=== PATIENT | male | born 1950 | race Caucasian/White ===

== ENCOUNTER 2023-08-10 17:31 | Inpatient (IN) | payer MEDICARE, SELFPAY ==
[2023-08-10] VITALS (18 sets, daily range): BP systolic 113–183; BP diastolic 64–91; PULSE 71–84; RESP 18; TEMP 36.4; O2SAT 95–100; BMI 27.6
--- NOTE | 2023-08-10 17:35 | ED.NURSE ---
Data Power Consultant assisted patient out of private vehicle into wheelchair. He is able to move his right arm/leg, communications writer had to lift patient's left leg out of the vehicle, and boost him under his left arm to get him pivoted into the wheelchair. Smile noted to be uneven on the left side. Patient reports symptoms started Ephraim Denise. He reports being on a blood thinner. Radiology notified of need for stat head ct - there is another patient for a PE protocol heading to the scanner. Discussed patient with Dr. Antonio, she okays the PE study to be completed first as patient's symptoms started 3 days ago. Patient on gambling monitor, oximeter. 20G IV SL to R AC. EKG being obtained.
--- NOTE | 2023-08-10 17:47 | CRLHL7_ITS ---
For Patients: As a result of the Century Cures Act, medical imaging exams and procedure reports are released immediately into your electronic medical record. You may view this report before your referring provider. If you have questions, please contact your health care provider. INDICATION: Left-sided weakness TECHNIQUE: Noncontrast axial CT of the head. Coronal and sagittal reformats. Bone and soft tissue algorithms. COMPARISON: No relevant comparison studies available at this institution. FINDINGS: Focal region of heterogeneous hypoattenuation at the right parieto-occipital junction, obscuring the sanchez-white matter differentiation, with additional hypoattenuating areas throughout the right frontal and parietal lobes, suspicious for evolving infarcts. No evidence of significant hemorrhagic conversion, midline shift, hydrocephalus or herniation. Midline structures are unremarkable. Calcific indicating atherosclerotic plaquing. Grossly intact calvarium. Clear visualized paranasal sinuses and mastoid air cells. IMPRESSION: 1. Findings suspicious for multiple evolving subacute right cerebral infarcts. MRI brain may better characterize. 2. No evidence of significant hemorrhagic conversion, midline shift, hydrocephalus or herniation. Please note that all CT scans at this facility use dose modulation, iterative reconstruction, and/or weight-based dosing when appropriate to reduce radiation dose to as low as reasonably achievable. Dictated by Brittany Walton MD @ 08/10/2023 6:41:36 PM (Electronically Signed)
--- NOTE | 2023-08-10 17:55 | ED_ITS ---
HPI - General Adult General Time Seen by Provider: 17:55 Date Seen: 08/10/23 Chief complaint: Neuro Symptoms/Altered Deficit Stated complaint: Possible stroke Time Seen by Provider: 08/10/23 17:55 Source: patient Mode of arrival: ambulatory Limitations: no limitations History of Present Illness HPI narrative: Phil is a very pleasant 73-year-old gentleman with a history of tobacco use, hypertension, diabetes and hyperlipidemia who comes to the emergency room for evaluation of left sided weakness. Patient notes that he has been dealing with some dizziness and vertigo for quite some time. A few days ago he noticed that his left hand was not working as well as normal. He states it was hard for him to pick things up. He has also had difficulty with walking but it is states that is been coming on for quite some time. She notes that he walks and a shuffling type gait. He states that is because he is dizzy and he is afraid of falling. He states that yesterday morning he got up from bed and hit his head on the dresser. This is left a scab. He denies any nausea vomiting or recent illness. He notes he smokes a half a pack of cigarette daily he has not had any loss of bowel or bladder control. He denies numbness or tingling. He does not think he has had any visual changes. Related Data Home Medications Medication Instructions Recorded Confirmed aspirin 81 mg capsule 81 mg PO DAILY 08/10/23 08/10/23 atorvastatin 40 mg tablet 40 mg PO DAILY 08/10/23 08/10/23 glipizide 2.5 mg tablet, extended 2.5 mg PO DAILY 08/10/23 08/10/23 release 24 hr lisinopril 10 mg tablet 10 mg PO DAILY 08/10/23 08/10/23 metformin 1,000 mg tablet 1,000 mg PO BID 08/10/23 08/10/23 Allergies Allergy/AdvReac Type Severity Reaction Status Date / Time No Known Drug Allergies Allergy Verified 08/10/23 21:16 Review of Systems Status of ROS: Reports: 10 or more systems reviewed and unremarkable except as noted in History and below Const: Denies: fever, chills or fatigue Eyes: Denies: change in vision or blurry vision ENMT: Reports: vertigo; Denies: neck pain or throat swelling Cardio: Reports: lightheadedness; Denies: chest pain, palpitations, swelling of feet/ankles or shortness of breath with exertion Resp: Denies: shortness of breath, cough or wheezing GI: Denies: abdominal pain, nausea or vomiting : Denies: painful urination or urinary frequency Musculo: Denies: back pain or neck pain Integ/Breast: Denies: rash Neuro: Reports: weakness in extremities, lack of coordination, dizziness and vertigo; Denies: headache or numbness in extremities Endo: Denies: fatigue Allergy/Immuno: Denies: throat swelling or wheezing PFSH PFSH Social History Smoking Status: Never smoker Do you use any of these nicotine containing products: None Second hand tobacco smoke exposure: No How often do you have a drink containing alcohol: never AUDIT-C Alcohol total score: 0 Non-prescribed substance use: denies use service: No Exam Narrative: Exam Narrative: Phil is alert and oriented. He is very funny making his family members were present lap. His EOM is full. No nystagmus. He has deficit of left-sided peripheral vision on exam. Questionable some left-sided neglect as well. Head shows a scab in his forehead with no underlying step-offs. Neck is supple with no midline tenderness. Face is symmetrical with eyebrow raise he is smiling symmetrically. Tongue is midline. Heart with regular rate and rhythm while he has been here. Upper extremity strength is very is subtle decreased on the left. However finger to nose and movement is challenging for him. Eye lungs are clear. Abdomen soft nontender. Left lower extremity wound able to lift leg off bed but falls back to bed. Cannot direct is boot to hit my hand. Right leg within normal limits. Romberg challenging as he is having a hard time holding his arm with palm up. Const: Vital Signs, click to edit/add: Vital Signs - 24 hr 08/10/23 17:51 08/10/23 19:33 08/10/23 19:34 Temperature 97.5 F L Pulse Rate 83 82 Pulse Rate [Pulse Oximeter] 79 Respiratory Rate 18 Blood Pressure 156/81 H Blood Pressure [Ri ght Upper Arm] 113/64 Pulse Oximetry 97 98 96 Oxygen Delivery Me thod Room Air 08/10/23 19:45 08/10/23 19:47 08/10/23 20:00 Temperature Pulse Rate 82 83 84 Pulse Rate [Pulse Oximeter] Respiratory Rate Blood Pressure 146/91 H Blood Pressure [Ri ght Upper Arm] Pulse Oximetry 98 99 100 Oxygen Delivery Me thod 08/10/23 20:02 08/10/23 20:03 08/10/23 20:15 Temperature Pulse Rate 82 83 81 Pulse Rate [Pulse Oximeter] Respiratory Rate Blood Pressure 168/87 H Blood Pressure [Ri ght Upper Arm] Pulse Oximetry 97 97 96 Oxygen Delivery Me thod 08/10/23 20:16 08/10/23 20:30 08/10/23 20:32 Temperature Pulse Rate 80 79 80 Pulse Rate [Pulse Oximeter] Respiratory Rate Blood Pressure 140/85 H 142/79 H Blood Pressure [Ri ght Upper Arm] Pulse Oximetry 97 98 98 Oxygen Delivery Me thod 08/10/23 20:46 08/10/23 21:12 08/10/23 21:16 Temperature Pulse Rate 79 78 Pulse Rate [Pulse Oximeter] Respiratory Rate Blood Pressure 168/87 H 183/83 H Blood Pressure [Ri ght Upper Arm] Pulse Oximetry 95 98 98 Oxygen Delivery Me thod 08/10/23 21:31 08/10/23 21:46 08/10/23 22:01 Temperature Pulse Rate 77 71 73 Pulse Rate [Pulse Oximeter] Respiratory Rate Blood Pressure 169/90 H 149/82 H 139/78 Blood Pressure [Ri ght Upper Arm] Pulse Oximetry 98 96 98 Oxygen Delivery Me thod Documenting provider has reviewed patient's vital signs: yes Course Course ED Course: Differential diagnosis and Q includes subacute stroke, tumor, other neurological illness. Will obtain head CT. Laboratory values to include CBC, comprehensive, CRP, urinalysis. Reevaluation(s) Reevaluation #1: Patient continues to be stable. A CT of the head shows multiple right-sided cerebral infarcts. No evidence of bleeding. He is given aspirin 325 mg p.o. here in the ER. I do speak to Neurology who requests CTA of head and neck. Patient noted to have elevated glucose of 450 and thus 12 units of regular insulin is given. Reevaluation #2: CTA of the head was done but not of the neck. I spoke with Neurology and in light of patient's elevated creatinine of 1.9 I hesitate to re-scanned him. Instead Dr. Rizvi, [facility] has stated that we can do an MRA of head and neck tomorrow. Vital Signs Vital signs: Initial Vital Signs Temperature 97.5 F L 08/10/23 17:51 Temperature Source Temporal Artery Scan 08/10/23 17:51 Pulse Rate 79 08/10/23 17:51 Respiratory Rate 18 08/10/23 17:51 Blood Pressure 113/64 08/10/23 17:51 Blood Pressure Mean 80 08/10/23 17:51 Blood Pressure Position Sitting 08/10/23 17:51 Pulse Oximetry 97 08/10/23 17:51 Oxygen Delivery Method Room Air 08/10/23 17:51 Vital Signs Temperature 97.5 F L 08/10/23 17:51 Pulse Rate 79 08/10/23 17:51 Respiratory Rate 18 08/10/23 17:51 Blood Pressure 113/64 08/10/23 17:51 Pulse Oximetry 97 08/10/23 17:51 Oxygen Delivery Method Room Air 08/10/23 17:51 Temperature 97.5 F L 08/10/23 17:51 Pulse Rate 73 08/10/23 22:01 Respiratory Rate 18 08/10/23 17:51 Blood Pressure 139/78 08/10/23 22:01 Pulse Oximetry 98 08/10/23 22:01 Oxygen Delivery Method Room Air 08/10/23 17:51 Medications Administered Medications: Discontinued Medications Generic Name Dose Route Start Last Admin Trade Name Freq PRN Reason Stop Dose Admin Aspirin 324 mg 08/10/23 19:43 08/10/23 19:51 Aspirin 81 Mg Tab.Chew PO 08/10/23 19:44 324 mg ONCE ONE Administration Insulin Human Regular 12 unit 08/10/23 19:49 08/10/23 19:57 Insulin Regular 100 Unit/Ml Inj SUBCUT 08/10/23 19:50 12 unit ONCE ONE Administration Medical Decision Making MDM Narrative Medical decision making narrative: 1. Subacute CVA-multiple subacute strokes on right hemisphere noted on CT. Neurology suggest MRI/MRA of head and neck tomorrow along with stroke workup. I did speak with Neurology who did read patient's CT of the head with no findings that would indicate vascular intervention tonight. CTA of the neck was thought to be a been ordered by myself but Radiology has no order in their system. At this time I do speak to the neurologist in regards to this occurrence. At this time there are no beds for transfer, patient has creatinine that is slightly elevated at 1.9, and it is highly unlikely that given patient's symptoms over the past days that there would be an emergent vascular intervention tonight. Therefore will avoid a repeat exposure to contrast at this time. Plan on MRA/MR I tomorrow. During patient's stay here he has been in sinus rhythm and EKG is within normal limits. No personal reports of palpitations or rapid heart rate per patient. His risk factors include tobacco use, hyperlipidemia, hypertensio n. Patient received aspirin 325 mg this evening. At this time per Radiology no addition of Plavix. 2. Hyper glycemia-history of type 2 diabetes. Blood sugar 450 and thus patient was given regular insulin 12 units subcu. 3. Hypertension. Initial blood pressure 113/64 now 168/87. 4. Elevated creatinine-I believe this to be pre renal as BUN is elevated at 40. 1 L of normal saline is given this evening. 5. Disposition-admit to [facility] at this time. Phone neurological consult done tonight. Will have secondary neurological consult tomorrow after MRI/MRA. Medical Records Medical records reviewed: Yes I reviewed the patient's medical records Lab Data Lab results reviewed: Yes I reviewed the patient's lab results Labs: Lab Results 08/10/23 08/10/23 Range/Units 17:45 20:45 WBC 7.14 (4.50-11.00) K/uL RBC 3.78 L (4.30-5.90) m/uL Hgb 12.6 L (13.5-17.5) gm/dL Hct 38.8 (37.0-53.0) % MCV 103 H (80-100) fL MCH 33 (26-34) pg MCHC 33 (32-36) gm/dL RDW Coeff of Nelson 12.3 (11.5-15.5) % Plt Count 258 (140-440) K/uL Neut % (Auto) 81.1 H (42.0-72.0) % Lymph % (Auto) 10.9 L (20-44) % [place] % (Auto) 6.4 (0.0-11.0) % Eos % (Auto) 0.7 (0.0-7.0) % Baso % (Auto) 0.6 (0.0-3.0) % Neut # (Auto) 5.80 (1.7-7.0) K/uL Lymph # (Auto) 0.80 L (0.90-2.90) K/uL [place] # (Auto) 0.50 (0.00-0.90) K/UL Eos # (Auto) 0.05 (0.00-0.50) K/uL Baso # (Auto) 0.04 (0.00-0.30) K/uL Abs Immat Gran (auto) 0.02 (0.00-0.30) K/uL Imm/Tot Granulo (auto) 0.3 % Sodium 134 L (135-149) mmol/L Potassium 4.5 (3.6-5.1) mmol/L Chloride 99 (96-114) mmol/L Carbon Dioxide 23 (20-32) mmol/L Anion Gap 12 (7-15) mEq/L BUN 40 H (7-30) mg/dL Creatinine 1.9 H (0.5-1.5) mg/dL Estimated Creat Clear 35.66 Estimated GFR 37 ml/min Glucose 450 H* (60-115) mg/dL Calcium 9.0 (8.4-10.6) mg/dL Total Bilirubin 0.8 (0.1-1.5) mg/dL AST 29 (12-35) U/L ALT 25 (4-50) U/L Alkaline Phosphatase 67 (40-150) U/L C-Reactive Protein < 0.5 L (0.5-1.0) mg/dL Total Protein 7.5 (6.0-8.3) g/dL Albumin 4.7 (3.3-5.0) g/dL POC Glucose 362 H* (60-115) mg/dl Imaging Data CT scan - head: Attestation: I have reviewed the pertinent imaging results. My impression: By my read most obvious is a right occipital lobe CVA. Radiologist's impression: Focal region of heterogeneous hypoattenuation at the right parieto-occipital junction, obscuring the sanchez-white matter differentiation, with additional hypoattenuating areas throughout the right frontal and parietal lobes, suspicious for evolving infarcts. No evidence of significant hemorrhagic conversion, midline shift, hydrocephalus or herniation. Midline structures are unremarkable. Calcific indicating atherosclerotic plaquing. Grossly intact calvarium. Clear visualized paranasal sinuses and mastoid air cells. IMPRESSION: 1. Findings suspicious for multiple evolving subacute right cerebral infarcts. MRI brain may better characterize. 2. No evidence of significant hemorrhagic conversion, midline shift, hydrocephalus or herniation. CTA: Attestation: I have reviewed the pertinent imaging results. Radiologist's impression: Diminished caliber and diminished opacification of the right internal carotid artery, suggesting a severe stenosis more proximally in the neck. Patent right anterior and middle cerebral arteries, and patent left anterior circulation. Patent right posterior communicating artery, which supplies the right posterior cerebral artery. Patent intracranial vertebral arteries, basilar artery, and left posterior cerebral artery. No intracranial aneurysm identified. ECG Data Attestation: I personally reviewed and interpreted this ECG as follows: Interpretation: By my read EKG shows sinus rhythm at a rate of 76. No ST or T-wave changes. QT and FL intervals within normal limits. Discharge Plan Discharge Clinical Impression: Acute CVA (cerebrovascular accident) Condition: Unchanged
[2023-08-10 19:10] LABS: Basophils Absolute Auto 0.04 K/uL (0.00-0.30); Basophils Percent Auto 0.6 % (0.0-3.0); Eosinophils Absolute Auto 0.05 K/uL (0.00-0.50); Eosinophils Percent Auto 0.7 % (0.0-7.0); Hematocrit 38.8 % (37.0-53.0); Hemoglobin* 12.6 gm/dL (13.5-17.5); Immature Granulocytes Abs Auto 0.02 K/uL (0.00-0.30); Immature Granulocytes Pct Auto 0.3 %; Lymphocytes Percent Auto 10.9 % (20-44); Mean Corpuscular HGB Conc 33 gm/dL (32-36); Mean Corpuscular Hemoglobin 33 pg (26-34); Mean Corpuscular Volume 103 fL (80-100); Monocytes Percent Auto 6.4 % (0.0-11.0); Neutrophils Percent Auto 81.1 % (42.0-72.0); Platelet Count* 258 K/uL (140-440); RDW Coefficient of Variation % 12.3 % (11.5-15.5); Red Blood Count 3.78 m/uL (4.30-5.90); White Blood Count* 7.14 K/uL (4.50-11.00)
[2023-08-10 19:13] LABS: Slide Review Reflex No
[2023-08-10 19:36] LABS: Albumin* 4.7 g/dL (3.3-5.0); Chloride* 99 mmol/L (96-114)
[2023-08-10 19:37] LABS: Potassium* 4.5 mmol/L (3.6-5.1); Sodium* 134 mmol/L (135-149)
[2023-08-10 19:39] LABS: Bilirubin Total* 0.8 mg/dL (0.1-1.5); Creatinine* 1.9 mg/dL (0.5-1.5); Est. Creatinine Clearance* 35.66; Estimated Glomerular Filt Rate 37 ml/min
[2023-08-10 19:40] LABS: Alanine Aminotransferase* 25 U/L (4-50); Alkaline Phosphatase* 67 U/L (40-150); Anion Gap 12 mEq/L (7-15); Aspartate Amino Transferase* 29 U/L (12-35); Blood Urea Nitrogen* 40 mg/dL (7-30); Carbon Dioxide* 23 mmol/L (20-32); Total Protein* 7.5 g/dL (6.0-8.3)
[2023-08-10 19:46] LABS: C Reactive Protein* < 0.5 mg/dL (0.5-1.0); Glucose* 450 mg/dL (60-115)
[2023-08-10] MEDS: ASPIRIN 81 MG TAB.CHEW 324 MG PO (19:51)
--- NOTE | 2023-08-10 20:39 | CRLHL7_ITS ---
For Patients: As a result of the Century Cures Act, medical imaging exams and procedure reports are released immediately into your electronic medical record. You may view this report before your referring provider. If you have questions, please contact your health care provider. INDICATION: Acute stroke, left-sided weakness. TECHNIQUE: CTA head with contrast bolus tracking, 3D angiographic rendering using maximum intensity projection (MIP) and images permanently archived. FINDINGS: Preliminary Report: CTA Head: Diminished caliber and diminished opacification of the right internal carotid artery, suggesting a severe stenosis more proximally in the neck. Patent right anterior and middle cerebral arteries, and patent left anterior circulation. Patent right posterior communicating artery, which supplies the right posterior cerebral artery. Patent intracranial vertebral arteries, basilar artery, and left posterior cerebral artery. No intracranial aneurysm identified. Report called to Dr. Fox at 10:30 p.m. on 08/10/2023. Read by: Irvin Araya MD @ 08/10/2023 22:35:53 IMPRESSION: AGREE WITH ABOVE. There is almost certainly a severe/critical stenosis of the cervical right ICA that is not visualized. Recommend dedicated imaging for further evaluation. Please note that all CT scans at this facility use dose modulation, iterative reconstruction, and/or weight-based dosing when appropriate to reduce radiation dose to as low as reasonably achievable. Dictated by Zaid Marshall MD @ 08/11/2023 9:55:36 AM (Electronically Signed)
[2023-08-10 22:02] LABS: Glucose, Point-of-Care* 362 mg/dl (60-115)
--- NOTE | 2023-08-10 23:07 | P.IMHP_ITS ---
Hospitalist- H&P: HPI History of Present Illness Date Seen: 08/10/23 Chief complaint: Possible stroke Narrative: Phil Burrell is a 73 year old male past medical history significant for hypertension, hyperlipidemia, BPV, diabetes mellitus type 2 is admitted to the medical floor from the ED for further management acute CVA. Patient is seen with and daughter at bedside. Patient and family reports that he 1st noted changes in June. At that time he was having difficulty climbing stairs without holding onto a railing. He also had episode of pain behind the right eye which was evaluated by Ophthalmology without acute findings. He denies recent headaches or dizziness. He does have a history of benign positional vertigo which began approximately 15 years ago. This has been under reasonable control. He denies recent chest pain or shortness of breath. No recent fevers chills or sweats. Denies change in appetite, abdominal pain, nausea vomiting. Denies change in stool or urination. Evolving since June when he 1st noticed difficulty in climbing stairs patient has also had most recently weakness of the left extremities. He reports his legs giving out under him when trying to sit down during 1 episode. His notes that some more in the last few weeks he was cooking dinner with his left arm limp at his side. His response when she brought it up to him was that he was not having a heart attack. He has had evolving left lower extremity weakness as well. He admits he is not able to walk normally but shuffles quickly to keep his balance. Additionally, he needs to hold onto or just touch morales for support. Patient is a smoker. Typically drinks 2-3 beers daily but has not had any alcohol since 08/06/2023. No history of withdrawals or seizures. Review of Systems Narrative: REVIEW OF SYSTEMS: Complete review of systems performed and negative unless otherwise stated in HPI or below. [facility] Medical History Type 2 diabetes mellitus ?E11.9 - Type 2 diabetes mellitus without complications (ICD-10) Hyperlipidemia ?E78.5 - Hyperlipidemia, unspecified (ICD-10) Hypertension ?I10 - Essential (primary) hypertension (ICD-10) Social History Smoking Status: Never smoker Do you use any of these nicotine containing products: None Second hand tobacco smoke exposure: No How often do you have a drink containing alcohol: never AUDIT-C Alcohol total score: 0 Non-prescribed substance use: denies use service: No Meds Home Medications and Allergies Home Medications Medication Instructions Recorded Confirmed Type aspirin 81 mg capsule 81 mg PO DAILY 08/10/23 08/10/23 History atorvastatin 40 mg tablet 40 mg PO DAILY 08/10/23 08/10/23 History glipizide 2.5 mg tablet, extended 2.5 mg PO DAILY 08/10/23 08/10/23 History release 24 hr lisinopril 10 mg tablet 10 mg PO DAILY 08/10/23 08/10/23 History metformin 1,000 mg tablet 1,000 mg PO BID 08/10/23 08/10/23 History Allergies Allergy/AdvReac Type Severity Reaction Status Date / Time No Known Drug Allergies Allergy Verified 08/10/23 21:16 Exam Narrative: Exam Narrative: PHYSICAL EXAM General: Very pleasant, conversant, NAD. Jokes with family and staff. HEENT: Normocephalic, atraumatic, sclera white, EOMI, oral mucosa moist. No facial drooping, slurring. Cardiovascular: RRR, S1S2. No pitting edema Pulmonary: CTA bilaterally without rhonchi, rales, expiratory wheezes. No dyspnea Abdominal: Soft, nondistended, NTTP Neurological: Alert, answering questions appropriately, cranial nerves intact. Notable for left upper and lower extremity weakness, mostly distal, with preserved proximal strength. Coordination of left upper and lower extremity is disrupted as well. Extremities: No gross joint deformity or swelling. AROMI. Neurovascularly intact Skin: Warm, dry. Const: Vital Signs, click to edit/add: Vital Signs - 24 hr 08/10/23 17:51 08/10/23 19:33 08/10/23 19:34 Temperature 97.5 F L Pulse Rate 83 82 Pulse Rate [Pulse Oximeter] 79 Respiratory Rate 18 Blood Pressure 156/81 H Blood Pressure [Ri ght Upper Arm] 113/64 Pulse Oximetry 97 98 96 Oxygen Delivery Me thod Room Air 08/10/23 19:45 08/10/23 19:47 08/10/23 20:00 Temperature Pulse Rate 82 83 84 Pulse Rate [Pulse Oximeter] Respiratory Rate Blood Pressure 146/91 H Blood Pressure [Ri ght Upper Arm] Pulse Oximetry 98 99 100 Oxygen Delivery Me thod 08/10/23 20:02 08/10/23 20:03 08/10/23 20:15 Temperature Pulse Rate 82 83 81 Pulse Rate [Pulse Oximeter] Respiratory Rate Blood Pressure 168/87 H Blood Pressure [Ri ght Upper Arm] Pulse Oximetry 97 97 96 Oxygen Delivery Me thod 08/10/23 20:16 08/10/23 20:30 08/10/23 20:32 Temperature Pulse Rate 80 79 80 Pulse Rate [Pulse Oximeter] Respiratory Rate Blood Pressure 140/85 H 142/79 H Blood Pressure [Ri ght Upper Arm] Pulse Oximetry 97 98 98 Oxygen Delivery Me thod 08/10/23 20:46 08/10/23 21:12 08/10/23 21:16 Temperature Pulse Rate 79 78 Pulse Rate [Pulse Oximeter] Respiratory Rate Blood Pressure 168/87 H 183/83 H Blood Pressure [Ri ght Upper Arm] Pulse Oximetry 95 98 98 Oxygen Delivery Me thod 08/10/23 21:31 08/10/23 21:46 08/10/23 22:01 Temperature Pulse Rate 77 71 73 Pulse Rate [Pulse Oximeter] Respiratory Rate Blood Pressure 169/90 H 149/82 H 139/78 Blood Pressure [Ri ght Upper Arm] Pulse Oximetry 98 96 98 Oxygen Delivery Me thod Hospitalist - H&P: Result Labs Labs: Short CBC 08/10/23 Range/Units 17:45 WBC 7.14 (4.50-11.00) K/uL Hgb 12.6 L (13.5-17.5) gm/dL Hct 38.8 (37.0-53.0) % Plt Count 258 (140-440) K/uL BMP 08/10/23 17:45 Sodium 134 L Potassium 4.5 Chloride 99 Carbon Dioxide 23 BUN 40 H Creatinine 1.9 H Glucose 450 H* Calcium 9.0 Liver Function 08/10/23 Range/Units 17:45 Total Bilirubin 0.8 (0.1-1.5) mg/dL AST 29 (12-35) U/L ALT 25 (4-50) U/L Alkaline Phosphatase 67 (40-150) U/L Albumin 4.7 (3.3-5.0) g/dL ECG Attestation: I personally reviewed and interpreted this ECG as follows: ECG interpretation date: 08/10/23 Interpretation: NSR, ventricular rate 76, QTC [address] scan - head: Attestation: I have reviewed the pertinent imaging results. Radiologist's impression: Noncontrast axial CT of the head. Coronal and sagittal reformats. Bone and soft tissue algorithms. COMPARISON: No relevant comparison studies available at this institution. FINDINGS: Focal region of heterogeneous hypoattenuation at the right parieto-occipital junction, obscuring the sanchez-white matter differentiation, with additional hypoattenuating areas throughout the right frontal and parietal lobes, suspicious for evolving infarcts. No evidence of significant hemorrhagic conversion, midline shift, hydrocephalus or herniation. Midline structures are unremarkable. Calcific indicating atherosclerotic plaquing. Grossly intact calvarium. Clear visualized paranasal sinuses and mastoid air cells. IMPRESSION: 1. Findings suspicious for multiple evolving subacute right cerebral infarcts. MRI brain may better characterize. 2. No evidence of significant hemorrhagic conversion, midline shift, hydrocephalus or herniation. CTA head: Radiologist's impression: Formal read pending on admission Assessment and Plan Assessment and plan (1) Acute CVA (cerebrovascular accident): Problem comment: -CT shows suspicion for multiple evolving infarcts of the right parietal occipital junction, right frontal and parietal lobes -left-sided deficits, more distal findings with retained proximal strength -ED provider discussed with TeleNeurology. No vascular intervention recommended. Admit locally, recommendations as follows: -cardiac monitoring -1 time loading dose aspirin 325 mg in ED. Further aspirin dosing pending results of MRA/MRI tomorrow. No Plavix yet recommended. -allow for permissive hypertension 220/120 - hold lisinopril -NS gentle hydration 75 mL/hr given history of diabetes and contrast given for CT scans -MRI/MRA head and neck tomorrow -TTE ordered -lipid panel and hemoglobin A1c ordered -neurochecks -SCDs. No enoxaparin pending results MRA/MRI -PT/OT consults. CLINICAL IMPLEMENTATION SPECIALIST consult. -follow-up with Neurology tomorrow after completion of tests for further recommendations Status: Acute (2) Hypertension: Problem comment: -hold lisinopril -allow for permissive hypertension 220/120 in setting of CVA Status: Chronic (3) Hyperlipidemia: Problem comment: -continue statin. Query need for high-intensity pending further workup -lipid panel ordered Status: Acute (4) Type 2 diabetes mellitus: Problem comment: -hemoglobin A1c ordered -hold home metformin. Continue glipizide. -diabetic diet (nursing bedside swallow eval 1st), glucose checks ACHS, insulin sliding scale Status: Chronic (5) EDUARDO (acute kidney injury): Problem comment: -creatinine 1.9, most recently 0.91 (07/07), baseline 0.88-1.02 -received contrast for CT scans. Will need further contrast for MRA/MRI tomorrow -hold lisinopril -gentle IV hydration Status: Acute Plan CODE: Full as discussed with patient and family VTE PPX: SCDs Disposition: Observation
[2023-08-11] VITALS (9 sets, daily range): BP systolic 72–180; BP diastolic 61–86; PULSE 54–80; RESP 16–18; TEMP 36.4–36.8; O2SAT 95–99; BMI 24.3
--- NOTE | 2023-08-11 | CRLHL7_ITS ---
For Patients: As a result of the Century Cures Act, medical imaging exams and procedure reports are released immediately into your electronic medical record. You may view this report before your referring provider. If you have questions, please contact your health care provider. Indication: NEURO DEFICIT Technique: [id number] and Gadolinium bolus MR angiogram of the neck with 3D MIP reconstructions provided. All measurements are based on NASCET criteria. Postcontrast images obtained after administration of 20 cc Gadolinium-based IV contrast. Comparison: No prior studies available for comparison at this institution. Findings: High-grade near occlusive stenosis of the right proximal ICA. Possible 6 mm intraluminal thrombus on image 44 series 9. Less than 50 percent stenosis of the left ICA due to atherosclerotic plaque. The cervical segments of both vertebral arteries are patent. origin of the right posterior cerebral artery. The visualized portions of the aortic arch, great vessel origins and proximal subclavian arteries are unremarkable. Impression: 1. High-grade near occlusive stenosis of the right proximal ICA. Possible 6 mm intraluminal thrombus on image 44 series 9. 2. Less than 50 percent stenosis of the left ICA due to atherosclerotic plaque. 3. Patent vertebral arteries bilaterally. Dictated by Bennie Szymanski MD @ 08/11/2023 1:08:20 PM (Electronically Signed)
--- NOTE | 2023-08-11 | CRLHL7_ITS ---
For Patients: As a result of the Century Cures Act, medical imaging exams and procedure reports are released immediately into your electronic medical record. You may view this report before your referring provider. If you have questions, please contact your health care provider. Indication: NEURO DEFICIT Technique: Noncontrast sagittal T1, axial FLAIR, T2 turbo spine echo, SWI, and diffusion weighted images. Supplemental post contrast T1 weighted axial and coronal sequences are provided after administration of 20 mL gadolinium-based IV contrast. Comparison: CT 08/10/2023 Findings: There are multiple scattered foci of diffusion restriction and T2 prolongation in the right frontal lobe, right parietal lobe, right occipital and posterior temporal lobe as well as in the right splenium of the corpus callosum, and right hippocampus consistent with right watershed territory ischemic infarcts. Cortical T1 shortening along the right occipital infarcts likely represents cortical laminar necrosis. Few punctate foci of susceptibility artifact in the right occipital and right parietal infarcts suggestive of petechial hemorrhage. Mild edema associated with the right parietal and occipital lobe infarcts. No significant mass effect. No midline shift. No hydrocephalus. Mild parenchymal volume loss. No suspicious extra-axial collection. Left deviation of the nasal septum. The paranasal sinuses are clear. The orbits are unremarkable. Impression : 1. Multiple acute and subacute ischemic infarcts right frontal lobe, right parietal lobe, right occipital and posterior temporal lobe, right splenium of the corpus callosum, and right hippocampus are most consistent with right watershed territory ischemic infarcts. 2. Cortical T1 shortening along the right occipital infarcts likely represents cortical laminar necrosis. 3. Few punctate foci of susceptibility artifact in the right occipital and right parietal infarcts suggestive of petechial hemorrhage. 4. No significant mass effect. No hydrocephalus. Dictated by Bennie Szymanski MD @ 08/11/2023 12:58:42 PM (Electronically Signed)
[2023-08-11] MEDS: 0.9 % SODIUM CHLORIDE 1000 ml 1,000 ML IV (01:37)
[2023-08-11] MEDS: 0.9 % SODIUM CHLORIDE 1000 ml 1,000 ML 75 ML IV (02:32)
--- NOTE | 2023-08-11 06:59 | PC.NURSE ---
Shift note 23: Pt w/ obvious L sided deficits, able to lift L arm about 2 inches w/ minimal hand grasp, able to lift L leg about 3 inches but unable to resist pressure, L facial droop. Pt impulsive, follows commands poorly, confusion waxes and wans, although unable to carry out full conversation w/ absolute appropriateness. Checked on frequently as unable to use call light. Pt will have MRI/MRA/ECHO today.
[2023-08-11 07:01] LABS: Hematocrit 35.2 % (37.0-53.0); Hemoglobin* 11.6 gm/dL (13.5-17.5); Mean Corpuscular HGB Conc 33 gm/dL (32-36); Mean Corpuscular Hemoglobin 34 pg (26-34); Mean Corpuscular Volume 103 fL (80-100); Platelet Count* 217 K/uL (140-440); Red Blood Count 3.42 m/uL (4.30-5.90); White Blood Count* 6.35 K/uL (4.50-11.00)
[2023-08-11 07:22] LABS: Chloride* 109 mmol/L (96-114); Potassium* 3.9 mmol/L (3.6-5.1); Sodium* 140 mmol/L (135-149)
[2023-08-11 07:24] LABS: Cholesterol* 128 mg/dL (90-199)
[2023-08-11 07:25] LABS: Anion Gap 9 mEq/L (7-15); Blood Urea Nitrogen* 41 mg/dL (7-30); Calcium* 8.9 mg/dL (8.4-10.6); Carbon Dioxide* 22 mmol/L (20-32); Creatinine* 1.5 mg/dL (0.5-1.5); Est. Creatinine Clearance* 45.17; Estimated Glomerular Filt Rate 49 ml/min; Glucose* 87 mg/dL (60-115); HDL Cholesterol* 51 mg/dL (>=40); LDL Cholesterol Calculated 55 mg/dL (<100); Triglycerides* 112 mg/dL (40-149)
[2023-08-11 07:36] LABS: Slide Review Reflex No
[2023-08-11 07:52] LABS: Hemoglobin A1C* 7.5 % (0-5.6)
[2023-08-11] MEDS: SODIUM CHLORIDE 0.9 % (FLUSH) 10 ML SYRINGE 5 ML IVF ×2 (09:40→21:19)
[2023-08-11] MEDS: ATORVASTATIN CALCIUM 40 MG TABLET PO (09:40)
[2023-08-11] MEDS: glipiZIDE 2.5 MG ER TAB PO (09:40)
--- NOTE | 2023-08-11 16:14 | P.IMPN_ITS ---
Progress Note: A&P Assessment and plan (1) Stenosis of right internal carotid artery with cerebral infarction: Problem details: Critical stenosis of proximal right check carotid artery with watershed infarcts in the right cerebral hemisphere. Tele stroke neurologist recommends transfer for neurovascular evaluation and intervention. Patient currently on a waiting list for this. Status: Acute (2) Acute CVA (cerebrovascular accident): Problem details: Multiple right hemisphere strokes presumably due to his critical right proximal carotid artery stenosis. Aspirin and Plavix, statin and glucose control Status: Acute (3) Hypertension: Problem details: -hold lisinopril -allow for permissive hypertension 220/120 in setting of CVA Status: Chronic (4) Hyperlipidemia: Problem details: Continue statin Status: Acute (5) Type 2 diabetes mellitus: Problem details: Hemoglobin A1c is 7.5 Status: Chronic (6) EDUARDO (acute kidney injury): Problem details: Admission creatinine 1.9. Baseline is 0.9. Today 1.5. Status: Acute Plan Continue in hospital pending transfer for neurovascular intervention for carotid stenosis. Continue monitoring and treatment. Time Spent With Patient Total time spent: Total time spent today is 60 minutes, 40 minutes in coordination of care and discussing with other other providers and patient ongoing plan of care for stroke Subjective Date Seen: 08/11/23 Interval history: 73-year-old male admitted to the hospital with acute and subacute neurologic problems. Patient reports that for about a month he has been having some tro uble with walking and climbing stairs and holding onto a railing. He had pain beyond his right eye evaluated by Ophthalmology with no abnormal findings. Had weakness and clumsiness in his left hand. He reports numbness in his left hand as well. He has had multiple falls at home. In the emergency department evaluation with head CT suggested multiple right infarcts. MRI and MRA were obtained today these confirm multiple diffuse right- sided infarcts in frontal parietal occipital corpus callosum areas. These were suspected to be watershed territory ischemic infarcts. MRA showed critical cathryn nosis of the proximal right internal carotid artery. Exam Narrative: Exam Narrative: He is alert pleasant in no distress. Speech is with mild dysarthria. He has obvious facial droop on the left side. He has neglect to sensory touch on the left side of his face and left arm. He has visual neglect to his left visual brown. Strength testing shows 5/5 strength in his right upper and lower extremities. 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 Left lower extremity has 4+ over 5 hip flexion and knee flexion and extension. For over 5 ankle dorsiflexion and plantar flexion. Decreased sensation and sensory neglect through his left side Const: Vital Signs, click to edit/add: Vital Signs - 24 hr 08/10/23 17:51 08/10/23 19:33 08/10/23 19:34 Temperature 97.5 F L Pulse Rate 83 82 Pulse Rate [Left P ulse Oximeter] Pulse Rate [Pulse Oximeter] 79 Pulse Rate [orthos tatic lying] Pulse Rate [orthos tatic sitting] Pulse Rate [orthos tatic standing] Respiratory Rate 18 Blood Pressure 156/81 H Blood Pressure [Ri ght Arm] Blood Pressure [Ri ght Upper Arm] 113/64 Blood Pressure [or thostatic lying] Blood Pressure [or thostatic sitting] Blood Pressure [or thostatic standing ] Pulse Oximetry 97 98 96 Oxygen Delivery Me thod Room Air 08/10/23 19:45 08/10/23 19:47 08/10/23 20:00 Temperature Pulse Rate 82 83 84 Pulse Rate [Left P ulse Oximeter] Pulse Rate [Pulse Oximeter] Pulse Rate [orthos tatic lying] Pulse Rate [orthos tatic sitting] Pulse Rate [orthos tatic standing] Respiratory Rate Blood Pressure 146/91 H Blood Pressure [Ri ght Arm] Blood Pressure [Ri ght Upper Arm] Blood Pressure [or thostatic lying] Blood Pressure [or thostatic sitting] Blood Pressure [or thostatic standing ] Pulse Oximetry 98 99 100 Oxygen Delivery Me thod 08/10/23 20:02 08/10/23 20:03 08/10/23 20:15 Temperature Pulse Rate 82 83 81 Pulse Rate [Left P ulse Oximeter] Pulse Rate [Pulse Oximeter] Pulse Rate [orthos tatic lying] Pulse Rate [orthos tatic sitting] Pulse Rate [orthos tatic standing] Respiratory Rate Blood Pressure 168/87 H Blood Pressure [Ri ght Arm] Blood Pressure [Ri ght Upper Arm] Blood Pressure [or thostatic lying] Blood Pressure [or thostatic sitting] Blood Pressure [or thostatic standing ] Pulse Oximetry 97 97 96 Oxygen Delivery Me thod 08/10/23 20:16 08/10/23 20:30 08/10/23 20:32 Temperature Pulse Rate 80 79 80 Pulse Rate [Left P ulse Oximeter] Pulse Rate [Pulse Oximeter] Pulse Rate [orthos tatic lying] Pulse Rate [orthos tatic sitting] Pulse Rate [orthos tatic standing] Respiratory Rate Blood Pressure 140/85 H 142/79 H Blood Pressure [Ri ght Arm] Blood Pressure [Ri ght Upper Arm] Blood Pressure [or thostatic lying] Blood Pressure [or thostatic sitting] Blood Pressure [or thostatic standing ] Pulse Oximetry 97 98 98 Oxygen Delivery Me od 08/10/23 20:46 08/10/23 21:12 08/10/23 21:16 Temperature Pulse Rate 79 78 Pulse Rate [Left P ulse Oximeter] Pulse Rate [Pulse Oximeter] Pulse Rate [orthos tatic lying] Pulse Rate [orthos tatic sitting] Pulse Rate [orthos tatic standing] Respiratory Rate Blood Pressure 168/87 H 183/83 H Blood Pressure [Ri ght Arm] Blood Pressure [Ri ght Upper Arm] Blood Pressure [or thostatic lying] Blood Pressure [or thostatic sitting] Blood Pressure [or thostatic standing ] Pulse Oximetry 95 98 [facility] 08[facility]/23 21:31 08/10/23 21:46 08/10/23 22:01 Temperature Pulse Rate 77 71 73 Pulse Rate [Left P ulse Oximeter] Pulse Rate [Pulse Oximeter] Pulse Rate [orthos tatic lying] Pulse Rate [orthos tatic sitting] Pulse Rate [orthos tatic standing] Respiratory Rate Blood Pressure 169/90 H 149/82 H 139/78 Blood Pressure [Ri ght Arm] Blood Pressure [Ri ght Upper Arm] Blood Pressure [or thostatic lying] Blood Pressure [or thostatic sitting] Blood Pressure [or thostatic standing ] Pulse Oximetry 98 96 98 Oxygen Delivery Me thod 08/11/23 01:00 08/11/23 01:00 08/11/23 01:00 Temperature 98.1 F 98.1 F Pulse Rate Pulse Rate [Left P ulse Oximeter] 60 60 Pulse Rate [Pulse Oximeter] Pulse Rate [orthos tatic lying] Pulse Rate [orthos tatic sitting] Pulse Rate [orthos tatic standing] Respiratory Rate 18 18 18 Blood Pressure Blood Pressure [Ri ght Arm] 132/66 132/66 Blood Pressure [Ri ght Upper Arm] Blood Pressure [or thostatic lying] Blood Pressure [or thostatic sitting] Blood Pressure [or thostatic standing ] Pulse Oximetry 95 95 95 Oxygen Delivery Ma thod Room Air Room Air Room Air 08/11/23 01:00 08/11/23 01:30 08/11/23 03:00 Temperature 97.5 F L Pulse Rate 54 L Pulse Rate [Left P ulse Oximeter] 69 Pulse Rate [Pulse Oximeter] Pulse Rate [orthos tatic lying] 60 Pulse Rate [orthos tatic sitting] 61 Pulse Rate [orthos tatic standing] 70 Respiratory Rate 18 Blood Pressure Blood Pressure [Ri ght Arm] 165/75 H Blood Pressure [Ri ght Upper Arm] Blood Pressure [or thostatic lying] 132/66 Blood Pressure [or thostatic sitting] 100/62 Blood Pressure [or thostatic standing ] 72/61 L Pulse Oximetry 97 Oxygen Delivery Ma thod Room Air 08/11/23 07:00 08/11/23 11:00 Temperature 98.1 F 98.2 F Pulse Rate Pulse Rate [Left P ulse Oximeter] 80 80 Pulse Rate [Pulse Oximeter] Pulse Rate [orthos tatic lying] Pulse Rate [orthos tatic sitting] Pulse Rate [orthos tatic standing] Respiratory Rate 18 16 Blood Pressure Blood Pressure [Ri ght Arm] 180/86 H 148/78 H Blood Pressure [Ri ght Upper Arm] Blood Pressure [or thostatic lying] Blood Pressure [or thostatic sitting] Blood Pressure [or thostatic standing ] Pulse Oximetry 99 95 Oxygen Delivery Ma thod Room Air Room Air Documenting provider has reviewed patient's vital signs: yes Labs Labs: Laboratory Results - last 24 hr 08/10/23 08/10/23 08/11/23 17:45 20:45 06:17 WBC 7.14 6.35 RBC 3.78 L 3.42 L Hgb 12.6 L 11.6 L Hct 38.8 35.2 L MCV 103 H 103 H MCH 33 34 MCHC 33 33 RDW Coeff of Nelson 12.3 Plt Count 258 217 Neut % (Auto) 81.1 H Lymph % (Auto) 10.9 L Stevens % (Auto) 6.4 Eos % (Auto) 0.7 Baso % (Auto) 0.6 Neut # (Auto) 5.80 Lymph # (Auto) 0.80 L Stevens # (Auto) 0.50 Eos # (Auto) 0.05 Baso # (Auto) 0.04 Abs Immat Gran (auto) 0.02 Imm/Tot Granulo (auto) 0.3 Sodium 134 L 140 Potassium 4.5 3.9 Chloride 99 109 Carbon Dioxide 23 22 Anion Gap 12 9 BUN 40 H 41 H Creatinine 1.9 H 1.5 Estimated Creat Clear 35.66 45.17 Estimated GFR 37 49 Glucose 450 H* 87 Hemoglobin A1c 7.5 H Calcium 9.0 8.9 Total Bilirubin 0.8 AST 29 ALT 25 Alkaline Phosphatase 67 C-Reactive Protein < 0.5 L Total Protein 7.5 Albumin 4.7 Triglycerides 112 Cholesterol 128 LDL Cholesterol, Calc 55 HDL Cholesterol 51 POC Glucose 362 H* Imaging MRI - head: Radiologist's impression: [place] [id number] Diagnostic Imaging Report Patient: Phil Burrell MR#: [id number] : 1950 Acct:[id number] Loc: [id number] Service Date: 08/11/[address]: Tasih Welsh M.D. Ordering Physician: Tanisha RAMIREZ Date of Service: 08/11/23 Procedure(s): MR head/brain wo/w con Accession Number(s): [id number] cc: Trevor Mohan M.D.; Tanisha RAMIREZ~ For Patients: As a result of the Century Cures Act, medical imaging exams and procedure reports are released immediately into your electronic medical record. You may view this report before your referring provider. If you have questions, please contact your health care provider. Indication: NEURO DEFICIT Technique: Noncontrast sagittal T1, axial FLAIR, T2 turbo spine echo, SWI, and diffusion weighted images. Supplemental post contrast T1 weighted axial and coronal sequences are provided after administration of 20 mL gadolinium-based IV contrast. Comparison: CT 08/10/2023 Findings: There are multiple scattered foci of diffusion restriction and T2 prolongation in the right frontal lobe, right parietal lobe, right occipital and posterior temporal lobe as well as in the right splenium of the corpus callosum, and right hippocampus consistent with right watershed territory ischemic infarcts. Cortical T1 shortening along the right occipital infarcts likely represents cortical laminar necrosis. Few punctate foci of susceptibility artifact in the right occipital and right parietal infarcts suggestive of petechial hemorrhage. Mild edema associated with the right parietal and occipital lobe infarcts. No significant mass effect. No midline shift. No hydrocephalus. Mild parenchymal volume loss. No suspicious extra-axial collection. Left deviation of the nasal septum. The paranasal sinuses are clear. The orbits are unremarkable. Impression : 1. Multiple acute and subacute ischemic infarcts right frontal lobe, right parietal lobe, right occipital and posterior temporal lobe, right splenium of the corpus callosum, and right hippocampus are most consistent with right watershed territory ischemic infarcts. 2. Cortical T1 shortening along the right occipital infarcts likely represents cortical laminar necrosis. 3. Few punctate foci of susceptibility artifact in the right occipital and right parietal infarcts suggestive of petechial hemorrhage. 4. No significant mass effect. No hydrocephalus.
[2023-08-11] MEDS: INSULIN ASPART 100 UNIT/ML SUBCUT (17:44)
[2023-08-11] MEDS: CLOPIDOGREL 75 MG TABLET PO (17:44)
[2023-08-11] MEDS: METFORMIN 500 MG TABLET PO (17:45)
--- NOTE | 2023-08-11 18:31 | PC.NURSE ---
700-1900 The patient is alert and orientated.. Has a L visual field cut, loss of sensation on the L side and left sided neglect. He can move his L arm if he concentrates. Hard for him to grasp initially but then the grasp gets strong. MRI and Echo were completed today. Neuro consult was also completed.. recommendations to transfer, he is currently on the [facility] wait list. Will call appropriately, but is very impulsive with his movements so alarms remain in place. Due to the visual field cut the patient needs assistance with using the urinal or else he will spill and miss. Patient only ate 1 meal today he reports he doesn't eat much I encouraged him to get something for dinner so he ordered some vegetables. Great PO intake, Dc'd IV fluids today. I called his this afternoon and gave her an update regarding the plan. She would like to be called if he transfers. Call light within reach. Mary Ann AGRAWAL BSN
[2023-08-12] VITALS (9 sets, daily range): BP systolic 104–175; BP diastolic 58–84; PULSE 57–70; RESP 16–18; TEMP 36.4–36.8; O2SAT 92–98
--- NOTE | 2023-08-12 06:43 | PC.NURSE ---
End of shift [id number]: A&O pleasant and cooperative. Hypertensive VS otherwise stable. Pt is still experiencing moderate weakness in left hand, arm, and leg. Able to transfer w/ A1, walker and GB but needs encouragement. Pt reports cut vision in left eye. Due to this pt needs direction and assistance with urinal. Uses call light appropriately. Bed alarms also in place. Pt awaiting transfer.
[2023-08-12 06:49] LABS: Hematocrit 32.8 % (37.0-53.0); Hemoglobin* 10.8 gm/dL (13.5-17.5); Mean Corpuscular HGB Conc 33 gm/dL (32-36); Mean Corpuscular Hemoglobin 33 pg (26-34); Mean Corpuscular Volume 101 fL (80-100); Platelet Count* 199 K/uL (140-440); Red Blood Count 3.24 m/uL (4.30-5.90); White Blood Count* 4.84 K/uL (4.50-11.00)
[2023-08-12 06:51] LABS: Chloride* 107 mmol/L (96-114); Potassium* 3.7 mmol/L (3.6-5.1); Sodium* 135 mmol/L (135-149)
[2023-08-12 06:53] LABS: Creatinine* 0.9 mg/dL (0.5-1.5); Est. Creatinine Clearance* 67.75; Estimated Glomerular Filt Rate 91 ml/min
[2023-08-12 06:54] LABS: Anion Gap 5 mEq/L (7-15); Blood Urea Nitrogen* 29 mg/dL (7-30); Calcium* 8.2 mg/dL (8.4-10.6); Carbon Dioxide* 23 mmol/L (20-32); Glucose* 111 mg/dL (60-115)
[2023-08-12 06:55] LABS: Slide Review Reflex No
[2023-08-12] MEDS: METFORMIN 500 MG TABLET PO ×2 (09:15→18:12)
[2023-08-12] MEDS: CLOPIDOGREL 75 MG TABLET PO (09:16)
[2023-08-12] MEDS: ATORVASTATIN CALCIUM 40 MG TABLET PO (09:16)
[2023-08-12] MEDS: ASPIRIN 81 MG TAB.CHEW PO (09:16)
[2023-08-12] MEDS: glipiZIDE 2.5 MG ER TAB PO (09:16)
[2023-08-12] MEDS: SODIUM CHLORIDE 0.9 % (FLUSH) 10 ML SYRINGE 5 ML IVF ×2 (09:21→20:25)
[2023-08-12] MEDS: INSULIN ASPART 100 UNIT/ML SUBCUT (12:12)
--- NOTE | 2023-08-12 15:41 | PC.NURSE ---
Addendum entered by Any Atkins RN 08/12/23 15:43: Pt still awaiting transfer. Original Note: Shift note [id number]: Pt denying pain when asked. He does have visual cut to L side as well as mild to moderate weakness noted to L side- more moderate weakness in LLE when transferring with PT. Pt remains on telemetry with sinus bradycardia noted. Bed and chair alarms utilized. Blood sugars of 132 and 153 this shift. Pt refused breakfast despite encouragement and reapproaching from staff. He is currently transferring/ambulating with assist of 1 using GB and RW. Pt reports dry cough though lung sounds noted to be clear to all lobes bilaterally and pt has been afebrile. VSS. ?
--- NOTE | 2023-08-12 15:43 | P.IMPN_ITS ---
Progress Note: A&P Assessment and plan (1) Stenosis of right internal carotid artery with cerebral infarction: Problem details: Critical stenosis of proximal right check carotid artery with watershed infarcts in the right cerebral hemisphere. Tele stroke neurologist recommends transfer for neurovascular evaluation and intervention. Patient currently on a waiting list for this. Status: Acute (2) Acute CVA (cerebrovascular accident): Problem details: Multiple right hemisphere strokes presumably due to his critical right proximal carotid artery stenosis. Aspirin and Plavix, statin and glucose control Status: Acute (3) Hypertension: Problem details: -hold lisinopril -allow for permissive hypertension 220/120 in setting of CVA Status: Chronic (4) Hyperlipidemia: Problem details: Continue statin Status: Acute (5) Type 2 diabetes mellitus: Problem details: Hemoglobin A1c is 7.5 Status: Chronic (6) EDUARDO (acute kidney injury): Problem details: Admission creatinine 1.9. Baseline is 0.9. Today 1.5. Status: Acute Plan Continue in hospital pending transfer for neurovascular surgery consultation. Time Spent With Patient Total time spent: Total time spent today is 35 minutes, 25 minutes in coordination of care and discussing with patient and other providers a plan for transfer Subjective Date Seen: 08/12/23 Interval history: 73-year-old male admitted to the hospital with acute and subacute neurologic problems. Patient reports that for about a month he has been having some trouble with walking and climbing stairs and holding onto a railing. He had pain beyond his right eye evaluated by Ophthalmology with no abnormal findings. Had weakness and clumsiness in his left hand. He reports numbness in his left hand as well. He has had multiple falls at home. In the emergency department evaluation with head CT suggested multiple right infarcts. MRI and MRA were obtained today these confirm multiple diffuse right- sided infarcts in frontal parietal occipital corpus callosum areas. These were suspected to be watershed territory ischemic infarcts. MRA showed critical stenosis of the proximal right internal carotid artery. patient reports no concerns today. physical therapy feels like his mobility is worse today than yesterday. Still no available beds for transfer for neuro vascular surgical consultation Exam Narrative: Exam Narrative: he is alert and pleasant. He continues to have visual field neglect on the left as well as sensory neglect in his left face and left arm. He has mild 4/5 weakness on the left hand compared to the right but is deficit see more of an apraxia as his movements and following commands with his left side are more clumsy and slow. respirations are clear to auscultation. Cardiovascular: S1, S2, regular rate and rhythm. Const: Vital Signs, click to edit/add: Vital Signs - 24 hr 08/11/23 19:27 08/11/23 22:39 08/11/23 23:13 Temperature 98.0 F 97.8 F Pulse Rate 61 Pulse Rate [Left P ulse Oximeter] 74 64 Respiratory Rate 16 16 Blood Pressure [Le ft Arm] Blood Pressure [Ri ght Arm] 175/79 H 164/74 H Pulse Oximetry 96 95 Oxygen Delivery Me thod Room Air Room Air 08/12/23 03:00 08/12/23 07:17 08/12/23 07:23 Temperature 98.2 F Pulse Rate 57 L Pulse Rate [Left P ulse Oximeter] 62 64 Respiratory Rate 18 16 Blood Pressure [Le ft Arm] 143/69 H Blood Pressure [Ri ght Arm] 145/64 H Pulse Oximetry 98 96 Oxygen Delivery Me thod Room Air Room Air 08/12/23 07:28 08/12/23 12:03 Temperature 97.6 F Pulse Rate Pulse Rate [Left P ulse Oximeter] 64 67 Respiratory Rate 16 16 Blood Pressure [Le ft Arm] 109/59 L Blood Pressure [Ri ght Arm] Pulse Oximetry 95 Oxygen Delivery Me thod Room Air Documenting provider has reviewed patient's vital signs: yes Labs Labs: Laboratory Results - last 24 hr 08/12/23 06:18 WBC 4.84 RBC 3.24 L Hgb 10.8 L Hct 32.8 L MCV 101 H MCH 33 MCHC 33 Plt Count 199 Sodium 135 Potassium 3.7 Chloride 107 Carbon Dioxide 23 Anion Gap 5 L BUN 29 Creatinine 0.9 Estimated Creat Clear 67.75 Estimated GFR 91 Glucose 111 Calcium 8.2 L
--- NOTE | 2023-08-12 22:23 | PC.NURSE ---
Shift note: The pt has been pleasant and cooperative. Denied chest pain and short of breath; SPo2 has been in the 90s in RA. No trouble of swallowing noted. Severe left arm and left leg noted; the pt stated the same as before. Mild visual cut noted to the left eye noted. The pt has been alert and oriented time, place, self and situation.
[2023-08-13] VITALS (8 sets, daily range): BP systolic 117–194; BP diastolic 62–96; PULSE 69–74; RESP 16–18; TEMP 36.4–37.3; O2SAT 96–100
[2023-08-13 05:25] LABS: Hematocrit 34.3 % (37.0-53.0); Hemoglobin* 11.4 gm/dL (13.5-17.5); Mean Corpuscular HGB Conc 33 gm/dL (32-36); Mean Corpuscular Hemoglobin 34 pg (26-34); Mean Corpuscular Volume 101 fL (80-100); Platelet Count* 208 K/uL (140-440); White Blood Count* 5.61 K/uL (4.50-11.00)
[2023-08-13 05:30] LABS: Slide Review Reflex No
[2023-08-13 05:41] LABS: Chloride* 106 mmol/L (96-114); Potassium* 3.9 mmol/L (3.6-5.1); Sodium* 137 mmol/L (135-149)
[2023-08-13 05:43] LABS: Creatinine* 0.9 mg/dL (0.5-1.5); Est. Creatinine Clearance* 67.75; Estimated Glomerular Filt Rate 91 ml/min
[2023-08-13 05:44] LABS: Anion Gap 9 mEq/L (7-15); Blood Urea Nitrogen* 30 mg/dL (7-30); Calcium* 8.5 mg/dL (8.4-10.6); Carbon Dioxide* 22 mmol/L (20-32); Glucose* 107 mg/dL (60-115)
--- NOTE | 2023-08-13 07:53 | PC.NURSE ---
Pt alert and oriented x3. Afebrile. Pt denies chest pain, pain, SOB, headache and N/V. Pt continues to have left sided weakness but is able to move leg and arm, with moderate weakness in arm and mild weakness in leg. Pt was able to stand up with SBA on standing scale. Pt slept intermittently throughout night. Still awaiting transfer to [place].
[2023-08-13] MEDS: ASPIRIN 81 MG TAB.CHEW PO (08:58)
[2023-08-13] MEDS: METFORMIN 500 MG TABLET PO ×2 (08:58→17:29)
[2023-08-13] MEDS: SODIUM CHLORIDE 0.9 % (FLUSH) 10 ML SYRINGE 5 ML IVF ×2 (08:58)
[2023-08-13] MEDS: CLOPIDOGREL 75 MG TABLET PO (08:58)
[2023-08-13] MEDS: ATORVASTATIN CALCIUM 40 MG TABLET PO (08:58)
[2023-08-13] MEDS: glipiZIDE 2.5 MG ER TAB PO (10:17)
[2023-08-13] MEDS: INSULIN ASPART 100 UNIT/ML SUBCUT ×2 (12:25→17:29)
--- NOTE | 2023-08-13 13:58 | PM.IMPN1 ---
Progress Note: A&P Assessment and plan (1) Stenosis of right internal carotid artery with cerebral infarction: Problem details: - Critical stenosis of proximal R CCA with watershed infarcts in R cerebral hemisphere - Tele stroke neurologist recommends transfer for neurovascular evaluation and intervention, patient remains on waiting list Status: Acute (2) Acute CVA (cerebrovascular accident): Problem details: - Multiple right hemisphere strokes presumably due to his critical right proximal carotid artery stenosis - Aspirin and Plavix, statin and glucose control Status: Acute (3) Hypertension: Problem details: - hold lisinopril - allow for permissive hypertension 180/100 in setting of CVA Status: Chronic (4) Hyperlipidemia: Problem details: - continue statin Status: Acute (5) Type 2 diabetes mellitus: Problem details: - Hemoglobin A1c is 7.5 Status: Chronic (6) EDUARDO (acute kidney injury): Problem details: - Admission creatinine 1.9, baseline 0.9 (back to baseline 08/13) Status: Acute Plan - continue therapies and treatments per above - await transfer - Nandini updated by phone ([phone]), questions answered Subjective Date Seen: 08/13/23 Interval history: 73-year-old male admitted to the hospital on 08/10 with both acute and subacute Neurological complaints; L handed symptoms of numbness/weakness/clumsiness, falls. The day prior to ER presentation he fell at home and hit his head. He was diagnosed with multiple subacute R hemisphere watershed infarcts, 2/2 critical stenosis of R distal CCA and proximal ICA. Stroke Neurology consulted 08/11 who recommended transfer for Neurovascular consult, ASA 81mg daily, Plavix 75mg daily. TTE obtained and reassuring. Therapies following, do feel like patient is declining a little each day. BG 100-290s, on home medications + SSI. We continue to await transfer to tertiary care facility for Neurovascular Surgery (confirmed to be on waitlist today). Phil has no concerns for hospitalist team today. 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, able to move left upper and left lower extremity with notable weakness Psych: Appropriate Const: Vital Signs, click to edit/add: Vital Signs - 24 hr 08/12/23 16:00 08/12/23 16:00 08/12/23 18:48 Temperature 97.5 F L Pulse Rate 65 Pulse Rate [Left P ulse Oximeter] 64 67 Respiratory Rate 16 16 Blood Pressure [Le ft Arm] 104/58 L Blood Pressure [Ri ght Arm] Pulse Oximetry 92 Oxygen Delivery Me thod Room Air 08/12/23 20:35 08/12/23 23:00 08/12/23 23:00 Temperature 97.7 F Pulse Rate 62 Pulse Rate [Left P ulse Oximeter] 68 70 Respiratory Rate 16 18 Blood Pressure [Le ft Arm] 175/84 H Blood Pressure [Ri ght Arm] Pulse Oximetry 97 Oxygen Delivery Me thod Room Air 08/13/23 00:30 08/13/23 03:40 08/13/23 09:22 Temperature 98.1 F 97.6 F Pulse Rate 69 Pulse Rate [Left P ulse Oximeter] 70 69 Respiratory Rate 18 16 Blood Pressure [Le ft Arm] Blood Pressure [Ri ght Arm] 194/92 H 185/88 H Pulse Oximetry 96 97 Oxygen Delivery Me thod Room Air Room Air 08/13/23 09:22 08/13/23 11:27 Temperature 97.6 F 99.1 F Pulse Rate Pulse Rate [Left P ulse Oximeter] 72 72 Respiratory Rate 18 16 Blood Pressure [Le ft Arm] Blood Pressure [Ri ght Arm] 117/62 140/69 H Pulse Oximetry 98 99 Oxygen Delivery Me thod Room Air Room Air Labs Labs: Laboratory Results - last 24 hr 08/13/23 04:35 WBC 5.61 RBC 3.40 L Hgb 11.4 L Hct 34.3 L MCV 101 H MCH 34 MCHC 33 Plt Count 208 Sodium 137 Potassium 3.9 Chloride 106 Carbon Dioxide 22 Anion Gap 9 BUN 30 Creatinine 0.9 Estimated Creat Clear 67.75 Estimated GFR 91 Glucose 107 Calcium 8.5
[2023-08-13] MEDS: 0.9 % SODIUM CHLORIDE 1000 ml 1,000 ML 125 ML IV (17:29)
[2023-08-13] MEDS: 0.9 % SODIUM CHLORIDE 500 ML 500 ML IV (17:29)
--- NOTE | 2023-08-13 17:31 | PM.DS1 ---
DS: Providers Provider Date Seen: 08/13/23 Date of admission: 08/11/23 09:07 Primary care physician: Trevor Mohan MD Admitting Clinician: Holly Alvarado MD Consults: 08/10/23 22:57 Consult to Occupational Therapy [CONS] Routine Comment: Reason(s) for OT Consult:: Evaluate and Treat Any Restrictions?:: No Restrictions Consult to Physical Therapy [CONS] Routine Comment: Reason(s) for PT Consult:: Evaluate and Treat Any Restrictions?:: No Restrictions Consult to Wrister [CONS] Routine Comment: Reason for Consult:: Social Service Consult Consult to Speech Therapy [CONS] Routine Comment: Reason(s) for Speech Consult:: Speech/Swallowing Eval Comment: CVA protocol 08/11/23 02:01 Consult to Occupational Therapy [CONS] Routine Comment: Reason(s) for OT Consult:: Difficulty Managing ADLs Any Restrictions?:: No Restrictions Consult to Physical Therapy [CONS] Routine Comment: Reason(s) for PT Consult:: Unstable Gait Any Restrictions?:: No Restrictions Attending Physician on discharge: Kristal Eastman MD Date of Discharge: 08/13/23 DS: Diagnosis Discharge Diagnosis (1) Acute CVA (cerebrovascular accident): Status: Acute Problem details: - Per formal radiology read of MRI: Multiple acute and subacute ischemic infarcts right frontal lobe, right parietal lobe, right occipital and posterior temporal lobe, right splenium of the corpus callosum, and right hippocampus are most consistent with right watershed territory ischemic infarcts - Aspirin and Plavix, statin and glucose control (2) Stenosis of right internal carotid artery with cerebral infarction: Status: Acute Problem details: - Critical stenosis of proximal R CCA with watershed infarcts in R cerebral hemisphere - Tele stroke neurologist recommends transfer for neurovascular evaluation and intervention - bed available 08/13: reviewed with Dr. Fox (stroke Neurology) and Dr. Thomas (hospitalist) for transfer to [facility] (3) EDUARDO (acute kidney injury): Status: Acute Problem details: - Admission creatinine 1.9, baseline 0.9 (back to baseline of 0.9 on 08/13) (4) Type 2 diabetes mellitus: Status: Chronic Problem details: - Hemoglobin A1c 7.5 - blood sugars 100-290s during stay (5) Hypertension: Status: Chronic Problem details: - holding lisinopril - allow for permissive hypertension 180/100 in setting of CVA DS: Summary Hospital Course Hospital Course: Phil is a delightful 73-year-old male admitted to the hospital on 08/10 with both acute and subacute Neurological complaints; L handed symptoms of numbness/weakness/clumsiness, in addition to falls. The day prior to ER presentation he fell at home and hit his head. In the ED, he was diagnosed with multiple subacute R hemisphere watershed infarcts, 2/2 critical stenosis of R distal CCA and proximal ICA. Stroke Neurology consulted 08/11 and recommended transfer for Neurovascular consult in addition to ASA 81mg daily, Plavix 75mg daily. TTE obtained 08/11 and reassuring. Therapies followed during stay and noted increased L sided neglect daily. Bed available at [facility] on 08/13 and patient transferred after discussion with Dr. Fox (Stroke Neuro) and Dr. Thomas (Hospitalist). Nandini updated at home phone: [phone] Status at Discharge Functional status at discharge: uses cane/walker Overall status at discharge: patient is not back to baseline Time Spent with Patient Time attestation: Total time spent providing and/or coordinating discharge services: Time spent: Greater than 30 minutes Specific discharge activities: Medication reconciliation, specialty consultation, family updates Exam Narrative: Exam Narrative: GEN: Alert and sitting comfortably in bedside chair HEENT: Normal external ears, EOMIs bilaterally, no scleral icterus CV: RRR, No concerning murmurs, rubs, or gallops R: LCTA bilaterally without concerning wheezing, rales, or rhonchi Skin: No concerning skin lesions or rashes on exposed skin Neuro: Left-sided facial droop, notable weakness LUE and LLE Psych: Appropriate Const: Vital Signs, click to edit/add: Vital Signs - 24 hr 08/12/23 18:48 08/12/23 20:35 08/12/23 23:00 Temperature 97.7 F Pulse Rate 65 62 Pulse Rate [Left P ulse Oximeter] 68 Respiratory Rate 16 Blood Pressure [Le ft Arm] 175/84 H Blood Pressure [Ri ght Arm] Pulse Oximetry 97 Oxygen Delivery Me thod Room Air 08/12/23 23:00 08/13/23 00:30 08/13/23 03:40 Temperature 98.1 F 97.6 F Pulse Rate Pulse Rate [Left P ulse Oximeter] 70 70 69 Respiratory Rate 18 18 16 Blood Pressure [Le ft Arm] Blood Pressure [Ri ght Arm] 194/92 H 185/88 H Pulse Oximetry 96 97 Oxygen Delivery Me thod Room Air Room Air 08/13/23 09:22 08/13/23 09:22 08/13/23 11:27 Temperature 97.6 F 99.1 F Pulse Rate 69 Pulse Rate [Left P ulse Oximeter] 72 72 Respiratory Rate 18 16 Blood Pressure [Le ft Arm] Blood Pressure [Ri ght Arm] 117/62 140/69 H Pulse Oximetry 98 99 Oxygen Delivery Me thod Room Air Room Air 08/13/23 14:39 08/13/23 15:00 Temperature 97.8 F Pulse Rate 71 Pulse Rate [Left P ulse Oximeter] 71 Respiratory Rate 18 Blood Pressure [Le ft Arm] Blood Pressure [Ri ght Arm] 138/69 Pulse Oximetry 100 Oxygen Delivery Me thod Room Air DS: Data Data Completed and Pending Labs on day of discharge: Labs from last 24 hours 08/13/23 04:35 WBC 5.61 RBC 3.40 L Hgb 11.4 L Hct 34.3 L MCV 101 H MCH 34 MCHC 33 Plt Count 208 Sodium 137 Potassium 3.9 Chloride 106 Carbon Dioxide 22 Anion Gap 9 BUN 30 Creatinine 0.9 Estimated Creat Clear 67.75 Estimated GFR 91 Glucose 107 Calcium 8.5 Discharge Plan Discharge Disposition: [facility] Date of Admission: 08/11/23 09:07 Attending Provider on Discharge: Kristal Eastman Primary Care Provider: Trevor Mohan Condition: Unchanged Discharge Orders: Transfer of Care to Other Hospital (ORDER); Ordered 08/13/23 Ordered By: Kristal Eastman Oxygen: No Urinary Catheter: No Services not available here: Neurovascular Surgery
--- NOTE | 2023-08-13 18:33 | PC.NURSE ---
Shift Summary: Patient pleasant and cooperative. Up with 1-2 assist, walker and gait belt. Using urinal per self, staff empty. Vitals stable and WNL. x2 IV in place in right arm. Patient continues to have left sided weakness. Tolerating regular diet well, denies nausea. Neuros consistent throughout shift, done q4h. Awaiting transfer this evening.
--- NOTE | 2023-08-14 00:06 | PC.NURSE ---
Pt alert and oriented x4 to time, name, place and situation. Afebrile. Pt denies pain, SOB, chest pain, headache, and N/V. Pt is up with A1/2 with walker to EMS transfer bed. Pt transferred to [facility] via non emergent EMS around 2022. Pt left with two IV's in right arm that were patent and dressings intact. Pt information packet and pt belongings sent with pt.
== END 2023-08-13 20:20 | disposition short-term general hospital (02) | DRG 65 ==
LOC: ED 19:14 → MEDSURG 22:05
PROVIDERS: Physician Assistant; Admitting Provider Family Medicine; Emergency Provider Family Medicine; PCP Surgery; Visit Provider Family Medicine
DX: I63.231 Cerebral infarction due to unspecified occlusion or stenosis of right carotid arteries (principal); N17.9 Acute kidney failure, unspecified; R41.4 Neurologic neglect syndrome; R47.1 Dysarthria and anarthria; R29.810 Facial weakness; R26.89 Other abnormalities of gait and mobility; R20.9 Unspecified disturbances of skin sensation; I10 Essential (primary) hypertension; E11.65 Type 2 diabetes mellitus with hyperglycemia; Z79.84 Long term (current) use of oral hypoglycemic drugs; E78.5 Hyperlipidemia, unspecified; Z72.0 Tobacco use; Z91.81 History of falling; S00.81XA Abrasion of other part of head, initial encounter; W18.30XA Fall on same level, unspecified, initial encounter; Y92.013 Bedroom of single-family (private) house as the place of occurrence of the external cause
CPT/HCPCS: 36415; 70450; 70496; 70549; 70553; 80048; 80053; 80061; 81001; 82947; 82962; 83036; 85025; 85027; 86140; 92523; 92610; 93005; 93306; 94761; 97110; 97116; 97162; 97165; 97530; 97535; 99285; G0378; G0426; A9270; A9575; J7030; J7120; Q9967

== ENCOUNTER 2023-08-13 20:10 | Outpatient (CLI) | payer MEDICARE, SELFPAY | END 2023-08-13 20:11 | disposition home or self-care (01) | LOC: AMB 08-19 18:10 | PROVIDERS: PCP Surgery; Visit Provider Emergency Medicine | DX: I67.82 Cerebral ischemia (principal) | CPT/HCPCS: A0425; A0427 ==

== ENCOUNTER 2024-02-23 13:00 | Outpatient (RCR) | payer MEDICARE, SELFPAY | END 2024-02-23 16:24 | disposition home or self-care (01) | PROVIDERS: PCP Surgery; Visit Provider Surgery | DX: I67.82 Cerebral ischemia (principal); I69.352 Hemiplegia and hemiparesis following cerebral infarction affecting left dominant side; M62.81 Muscle weakness (generalized); R26.2 Difficulty in walking, not elsewhere classified; R26.81 Unsteadiness on feet; Z51.89 Encounter for other specified aftercare | CPT/HCPCS: 97110; 97112; 97116; 97162; 97530 ==